=== PATIENT | female | born 1995 | race Hispanic/Latino ===

== ENCOUNTER 2018-04-01 07:40 | Inpatient (IN) | payer OTHER ==
[2018-04-01] MEDS ORDERED: Bupivacaine HCl 0.25%/Epi 0.0005/PF 10 ML VIAL FS ONE (07:43)
[2018-04-01] MEDS ORDERED: Scopolamine 1.5 mg/72 hour Patch ONE (07:46)
[2018-04-01] MEDS ORDERED: HYDROmorphone 0.5 MG/0.5 ML SYRINGE ONE (07:56)
[2018-04-01] MEDS ORDERED: Fentanyl 100 MCG/2 ML VIAL ONE (07:56)
[2018-04-01] MEDS ORDERED: Promethazine HCl 25 MG/ML VIAL ONE (07:57)
[2018-04-01] MEDS ORDERED: Sodium Chloride 0.9% 100 ML ONE (08:02)
[2018-04-01] MEDS ORDERED: Midazolam HCl 2 mg/2 ml Vial ONE (08:02)
[2018-04-01] MEDS ORDERED: cefOXitin 2 GM VIAL ONE (08:02)
--- NOTE | 2018-04-01 08:04 | HP ---
CHIEF COMPLAINT: Right upper quadrant abdominal pain. HISTORY OF PRESENT ILLNESS: This is a 22-year-old female with a 2-day history of right upper quadran t pain, began after eating, is radiating to the back, associated with nausea, vomiting. It has been progressive. She has had chills and sweats. CT scan shows cholelithiasis. PAST MEDICAL HISTORY: Otherwise, healthy with the exception of obesity and depression. PAST SURGERIES: She has had third molar extraction. MEDICATIONS: She is on an injectable control and Lexapro. ALLERGIES: She has allergies to fire ants. SOCIAL HISTORY: She is single. 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 Social [employer]. Social t obacco. FAMILY HISTORY: Breast cancer in her mother, uterine cancer in her sister, diabetes in her father. PHYSICAL EXAMINATION: VITAL SIGNS: Temperature 98, pulse 80, blood pressure 120/82. GENERAL: Obese female in no apparent distress. HEENT: No jaundice. LUNGS: Clear. HEART: Regular rate and rhythm. ABDOMEN: Obese, soft, tender in the right upper quadrant with a positive Varghese's sign. EXTREMITIES: Unremarkable. LABORATORY AND X-RAY FINDINGS: Her white count is 14, H and H 14 and 40, platelet count 295. LFTs n ormal with a slightly elevated AST. Urinalysis clear. HCG negative. CT scan shows gallstones and w all thickening. Questionable pericholecystic fluid, no ductal dilatation. ASSESSMENT: Acute cholecystitis. PLAN: Laparoscopic cholecystectomy. CONSENT: I have discussed the planned procedure as well as risk of bleeding, infection, injury to bi le duct, injury to bowel, need to open. She understands and gives informed consent.
[2018-04-01] MEDS ORDERED: Dextrose 50% Abboject 50 ML SYRINGE SLOW IVP PRN (09:24)
[2018-04-01] MEDS ORDERED: Morphine 4 MG/ML Carpuject SLOW IVP PRN (09:24)
[2018-04-01] MEDS ORDERED: hydrALAZINE 20 MG/ML VIAL SLOW IVP PRN (09:24)
[2018-04-01] MEDS ORDERED: Ondansetron HCl/PF 4 MG/2 ML Vial IVP PRN (09:24)
[2018-04-01] MEDS ORDERED: Mag-Al 1200 mg/1200 mg/30 ML UDCUP PO PRN (09:24)
[2018-04-01] MEDS ORDERED: Calcium Carbonate 500 MG ChewTAB PO PRN (09:24)
[2018-04-01] MEDS ORDERED: HYDROcodone/Acetaminophen 10/325 mg Tablet PO PRN ×2 (09:24)
[2018-04-01] MEDS ORDERED: Promethazine HCl 25 MG/ML VIAL IM PRN (09:24)
[2018-04-01] MEDS ORDERED: Dextrose 5% in Water 1,000 ML IV PRN (09:24)
--- NOTE | 2018-04-01 10:51 | OP ---
DATE OF PROCEDURE: 04/01/2018 PREOPERATIVE DIAGNOSIS: Acute cholecystitis. SURGEON: Zhang France M.D. PROCEDURE PERFORMED: Laparoscopic cholecystectomy. INDICATIONS: This is a 22-year-old female who has been having severe right upper quadrant pain for t he past 2 days, associated with nausea, vomiting and leukocytosis. CT scan showing acute cholecystit is. FINDINGS: Multiple gallstones, small caliber cystic duct, thickened gallbladder wall. DESCRIPTION OF PROCEDURE: After informed consent was obtained, the patient was taken to the operatin g room and given general endotracheal anesthesia. She was placed in the supine position. Her abdome n was prepped and draped in usual fashion. Local anesthesia infiltrated subcutaneously and deep. A subumbilical incision was performed. Subcu divided sharply. The fascia grasped and two stay sutures of 0 Vicryl placed on either side of midline. Midline incised. Digital palpation revealed no local adhesions. A blunt 10-12 mm trocar inserted. Pneumoperitoneum was created to a pressure of 15 mmHg . Zero degree laparoscope inserted under direct vision, three 5 mm ports placed subcostally. The ga llbladder was grasped and advanced superiorly. The cystic duct, artery and critical view were dissec nico out. Duct was triply ligated and divided. The artery triply ligated and divided. The gallbladd er was removed from its fossa utilizing electrocautery. The bed was very hemorrhagic due to inflamma tion. The gallbladder was removed from the abdomen through the umbilical port. Hemostasis achieved with electrocautery as well as Christina powder. Once hemostasis was assured, Trocars and retractors re moved. The fascia closed with interrupted 0 Vicryl suture. The skin closed with interrupted 4-0 Rap hali. Dermabond applied. The patient tolerated the procedure well and was transferred to recovery in good condition. Sponge and needle count verified correct x2.
[2018-04-01] MEDS: Lactated Ringer's 1,000 ML IV SCH ×2 (11:44→16:34)
[2018-04-01] MEDS: Ketorolac Tromethamine 30 MG/ML VIAL IVP SCH ×2 (12:56→17:39)
[2018-04-01] MEDS ORDERED: PROPOFOL 200 MG/20 ML VIAL ONE (13:01)
[2018-04-01] MEDS ORDERED: Lidocaine 1% PF 5 ML VIAL ONE (13:01)
[2018-04-01] MEDS ORDERED: Dexamethasone 20 MG/5 ML VIAL ONE (13:01)
[2018-04-01] MEDS ORDERED: Ondansetron HCl/PF 4 MG/2 ML Vial ONE (13:01)
[2018-04-01] MEDS ORDERED: Glycopyrrolate 0.2 MG/ML 5 ML SYRINGE ONE (13:01)
[2018-04-01] MEDS ORDERED: Ketorolac Tromethamine 30 MG/ML VIAL ONE (13:01)
[2018-04-01] MEDS ORDERED: ePHEDrine/0.9% NaCl/PF SYRINGE 50 mg/10 ml ONE (13:01)
[2018-04-01 13:04] VITALS: BMI 31.4
[2018-04-01] MEDS: cefOXitin 2 GM in Sodium Chloride 0.9% 100 ML IVPB SCH (16:16)
[2018-04-01] MEDS: Famotidine 20 MG TAB PO SCH (20:46)
[2018-04-01] MEDS: Famotidine/PF 20 mg/2ml Vial SLOW IVP SCH (21:07)
[2018-04-02] MEDS: Ketorolac Tromethamine 30 MG/ML VIAL IVP SCH ×3 (00:11→12:34)
[2018-04-02] MEDS: cefOXitin 2 GM in Sodium Chloride 0.9% 100 ML IVPB SCH ×2 (00:11→08:24)
[2018-04-02] MEDS: Lactated Ringer's 1,000 ML IV SCH ×2 (03:52→10:24)
[2018-04-02 05:14] LABS: #Eosinphils 0.1 thou/uL (0.0-0.7); #Lymphocytes 2.2 thou/uL (1.20-3.40); #Monocytes 0.6 thou/uL (0.11-0.59); #Neutrophils 7.8 thou/uL (1.40-6.50); %Basophils 0.2 % (0.0-1.0); %Eosinophils 1.3 % (0.0-10.0); %Lymphocytes 20.4 % (21.0-51.0); %Monocytes 5.9 % (0.0-10.0); %Neutrophils 72.2 % (42.0-75.0); Hemoglobin 11.5 g/dL (12.0-16.0); Mean Corpuscular HGB CONC 34.4 g/dL (32.0-36.0); Mean Corpuscular Hemoglobin 32.5 pg (27.0-31.0); Mean Corpuscular Volume 94.3 fL (78.0-98.0); Mean Platelet Volume 6.4 fL (7.4-10.4); Platelet Count 242 thou/uL (130-400); RBC Distribution Width 11.5 % (11.5-14.5); Red Blood Cell (RBC) Count 3.55 mill/uL (4.20-5.40); White Blood Cell (WBC) Count 10.8 thou/uL (4.8-10.8)
[2018-04-02 05:30] LABS: ALT (SGPT) 474 U/L (8-55); AST (SGOT) 256 U/L (5-34); Albumin 3.2 g/dL (3.5-5.0); Alkaline Phosphatase 76 U/L (40-150); Anion Gap 7 mmol/L (10-20); BUN (Urea Nitrogen) 8 mg/dL (7.0-18.7); Bilirubin, Total 0.5 mg/dL (0.2-1.2); Calc. Creatinine Clearance 152 mL/min (70-130); Carbon Dioxide 28 mmol/L (22-29); Chloride 107 mmol/L (98-107); Estimated GFR-MDRD Greater than 90; Glucose 92 mg/dL (70-105); Lipase 166 U/L (8-78); Potassium 3.6 mmol/L (3.5-5.1); Protein, Total 5.2 g/dL (6.0-8.3); Sodium 138 mmol/L (136-145)
[2018-04-02] MEDS: Famotidine/PF 20 mg/2ml Vial SLOW IVP SCH (08:25)
[2018-04-02] MEDS: Famotidine 20 MG TAB PO SCH (08:25)
[2018-04-02] MEDS ORDERED: Enoxaparin Sodium 40 MG/0.4 ML SYRINGE SC SCH (09:00)
[2018-04-02 11:48] VITALS: BP 99/64; TEMP 98.6
--- NOTE | 2018-04-02 19:24 | DIS ---
DISCHARGE DIAGNOSIS: Acute cholecystitis. PROCEDURES DURING ADMISSION: Laparoscopic cholecystectomy. HOSPITAL COURSE: The patient was admitted, given IV antibiotics, taken to the operating room where s he underwent a laparoscopic cholecystectomy. She was found to have an inflamed gallbladder. Postope ratively, she had some mild urinary retention, required in and out catheterization that resolved. Mason quinonez was treated with antibiotics. Today, she is feeling better. Pain is controlled on p.o. meds. She is afebrile. She is discharged home in good condition on hydrocodone, Zofran, and doxycycline. She will follow up with me in 2 weeks.
== END 2018-04-02 13:46 | disposition home or self-care (01) | DRG 419 ==
LOC: SDC 07:40 → SURG B 09:24
PROVIDERS: ADMIT Surgery; ATTEND Surgery
PROC: 0FT44ZZ Resection of Gallbladder, Percutaneous Endoscopic Approach (ICD-10-PCS; principal; 2018-04-01)
DX: K80.00 Calculus of gallbladder with acute cholecystitis without obstruction (principal)
CPT/HCPCS: 36415; 80053; 83690; 85025; 88304; J0694; J1100; J1170; J1885; J2001; J2250; J2405; J2550; J2704; J3010; J7050